=== PATIENT | male | born 1945 | race African-American/Black ===

== ENCOUNTER → 2017-10-08 | Outpatient (CLI) | payer OTHER ==
[~2017-10-08] MED LIST: CIPR100T PO; CPR500T PO; HYDR-707 PO; SAWP1CAP PO
--- NOTE | 2017-10-08 15:43 | Diagnostic Imaging Report ---
INDICATION: Prostate carcinoma. TECHNIQUE: The patient was administered 26.4 mCi of Tc 99m MDP intravenously and whole-body imaging was performed after a three-hour delay. COMPARISON: Correlation is made with prior whole body bone scan from 02/23/2010. FINDINGS: There is normal uptake of activity by the axial and appendicular skeleton. There is uptake by both kidneys with excretion into the urinary bladder. No abnormal foci of tracer accumulation is seen to suggest osseous metastatic disease or occult fracture. IMPRESSION: No scintigraphic evidence of osseous metastatic disease. Dictated by: Dictated on workstation # [id number]
== END ==
LOC: RAD 10:10
PROVIDERS: ATTEND Urology
DX: C61 Malignant neoplasm of prostate (principal)
CPT/HCPCS: 78306

== ENCOUNTER → 2017-10-12 | Outpatient (CLI) | payer OTHER ==
[~2017-10-12] MED LIST changes: +BARIUM SUSPENSION 2.1% (VANILLA SILQ) 450 ML PO ONE
[2017-10-12] MEDS: IOHEXOL 350 MG/ML 100 ML (OMNIPAQUE 350) VIAL IV ONE (07:50)
--- NOTE | 2017-10-12 08:16 | Diagnostic Imaging Report ---
PROCEDURE: CT abdomen and pelvis with contrast. TECHNIQUE: Multiple contiguous axial images were obtained through the abdomen and pelvis after administration of intravenous contrast. INDICATION: Prostate carcinoma. Comparison is made with prior CT from 12/21/2015. The lung bases demonstrate some scarring in the right middle lobe and lingula. No discrete liver mass is identified. The gallbladder is unremarkable. The pancreas and spleen are unremarkable. No adrenal mass is detected. Kidneys are unremarkable. Aorta is nonaneurysmal. No central retroperitoneal or mesenteric lymphadenopathy is detected. The small and large bowel loops appear normal caliber. No obstruction is seen. There is no ascites. Imaging through the pelvis demonstrates the bladder to be decompressed. There are multiple radiation seed implants within the prostate gland. No definite pelvic lymphadenopathy is identified. There is a fat-containing right inguinal hernia. No osteoblastic lesions are detected. IMPRESSION: Unremarkable CT of the abdomen and pelvis demonstrating radiation seeds within the prostate gland. No abdominal or pelvic lymphadenopathy or evidence of metastatic disease is detected. Dictated by: Dictated on workstation # [id number]
== END ==
LOC: RAD 07:30
PROVIDERS: ATTEND Urology
DX: C61 Malignant neoplasm of prostate (principal)
CPT/HCPCS: 74177